=== PATIENT | male | born 1960 | race Caucasian/White ===

== ENCOUNTER 2017-06-02 07:33 | Observation (INO) | payer OTHER ==
[2017-06-02] VITALS (11 sets, daily range): BP systolic 125–171; BP diastolic 73–122; PULSE 64–82; TEMP 36.2–37; O2SAT 94–98; Ht 172.7 cm; Wt 70.9 kg
[~2017-06-02] VITALS: Ht 172.7 cm; Wt 70.9 kg
[~2017-06-02 07:33] MED LIST: HYDROCODONE
[2017-06-02] MEDS ORDERED: NITROGLYCERIN 0.4 MG SL PER TAB CHARGE ONE (07:51)
[2017-06-02] MEDS ORDERED: ASPIRIN 81 MG CHEW ONE (07:52)
[2017-06-02] MEDS ORDERED: SODIUM CHLORIDE 0.9% 1000ML 1,000 ML IV STA (07:56)
[2017-06-02] MEDS ORDERED: FENTANYL CITRATE INJ 50 MCG/1 ML 2 ML VIAL IV STA ×3 (08:06→09:53)
[2017-06-02 08:08] LABS: BASO % 0.4 %; BASO ABS # 0.03 K/uL (0-0.2); EOS % 2.4 %; HEMATOCRIT 42.3 % (42-52); HEMOGLOBIN 14.6 g/dL (14.0-18.0); IG# 0.01 K/uL (0.00-0.02); LYMPH % 46.1 %; LYMPH ABS # 3.91 K/uL (1.2-3.4); MEAN CELL VOLUME 89.2 fL (80-100); MEAN CORPUSCULAR HEMOGLOBIN 30.8 pg (25-34); MEAN CORPUSCULAR HGB CONC 34.5 g/dl (32-36); MEAN PLATELET VOLUME 9.4 fL (7.4-10.4); MONO ABS # 0.76 K/uL (0.11-0.59); NEUT ABS # 3.58 K/uL (1.4-6.5); PLATELET COUNT 291 K/uL (130-400); RED CELL DISTRIBUTION WIDTH CV 14.2 % (11.5-14.5); RED CELL DISTRIBUTION WIDTH SD 46.6 fL (36.4-46.3); WHITE BLOOD COUNT 8.49 K/uL (4.8-10.8)
[2017-06-02 08:17] LABS: ALBUMIN 4.4 gm/dl (3.4-5.0); ALT/SGPT 18 U/L (12-78); AST/SGOT 11 U/L (15-37); BLOOD UREA NITROGEN 15 mg/dl (7-18); CALCIUM 9.2 mg/dl (8.5-10.1); CARBON DIOXIDE 28 mmol/L (21-32); CREATININE 0.97 mg/dl (0.60-1.40); GLUCOSE 123 mg/dl (70-99); LIPASE 188 U/L (73-393); SODIUM 139 mmol/L (136-145)
[2017-06-02] MEDS ORDERED: ONDANSETRON INJ 2 MG/ML 2 ML VIAL ONE (08:19)
[2017-06-02] MEDS ORDERED: ONDANSETRON INJ 2 MG/ML 2 ML VIAL IV STA (08:19)
--- NOTE | 2017-06-02 08:19 | EMERGENCY ROOM VISIT NOTE ---
History First contact with patient: 07:41 Chief Complaint: CHEST PAIN Stated Complaint: CHEST PAIN Nursing Triage Summary: patient c/o midsternal chest pain that radiates into back since 629. denies SOB. patient states he took 1 naproxsyn this AM for pain. History of Present Illness The patient is a 56 year old male who presents to the Emergency Room with complaints of pain which began one hour ago. The patient states he was walking downstairs to his , and after walking back upstairs, he began experiencing the chest pain. He states he initially thought the pain was related to indigestion , as it was radiating into his back. He states it was very sharp, then went away. He got in his car to go to work, as he was driving, he noticed his pain is worsening. He decided to come here instead of work. The patient states he is currently having active chest pain. The patient describes the pain as sharp , it radiates across his chest, "like a pulled muscle". Patient states there has been no difficulty breathing. There is no diaphoresis. There has been no edema or leg swelling. The patient states the pain is intermittent, and seems to occur spontaneously. He did have some nausea while here, but denies any GI symptoms today. He states approximately 4 days ago, he was experiencing some diarrhea with abdominal cramping. He denies recent fever, chills, URI symptoms, cough, or congestion. He has a history of HTN and hyperlipidemia. [facility] His BP medications were discontinued approximately 10 years because he was not having HTN then. He states he does not take medication for hyperlipidemia, however he was advised he should be taking medication. He does smoke 1.5 packs cigarettes per day. Review of Systems A complete 10 point review of systems was reviewed with the patient with pertinent positives and negatives as per history of present illness. All else were negative. Past Medical/Surgical History Medical Problems: (1) Chronic lower back pain (2) HLD (hyperlipidemia) (3) HTN (hypertension) (4) Tobacco use disorder Hyperlipidemia, hypertension, chronic back pain Social History Smoking Status: Current Every Day Smoker Smokeless Tobacco Use: No Alcohol Use: none Drug Use: none Marital Status: single Occupation Status: employed Current/Historical Medications Scheduled Oxycodone HCl (Oxycodone HCl), 5 MG PO BID Allergies Morphine Physical Exam Vital Signs Date Time Temp Pulse Resp B/P (MAP) Pulse Ox O2 Delivery O2 Flow Rate FiO2 06/02/17 12:29 36.9 82 18 171/122 Room Air 165/103 06/02/17 11:43 66 18 137/86 98 Room Air 06/02/17 11:24 78 06/02/17 11:08 62 18 154/94 97 Room Air 06/02/17 10:35 62 17 96 06/02/17 10:30 61 14 148/91 96 06/02/17 10:25 61 20 96 06/02/17 10:20 62 18 96 06/02/17 10:15 62 18 94 06/02/17 10:10 63 23 94 06/02/17 10:05 61 17 93 06/02/17 10:00 62 16 148/92 96 06/02/17 09:55 60 16 98 06/02/17 09:50 59 15 96 06/02/17 09:49 152/90 06/02/17 09:45 58 18 99 06/02/17 09:40 59 18 98 06/02/17 09:35 60 17 98 06/02/17 09:30 55 20 96 06/02/17 09:25 54 24 96 06/02/17 09:20 56 21 95 06/02/17 09:15 57 18 154/93 98 06/02/17 09:10 58 18 156/94 97 06/02/17 09:05 55 21 160/93 98 06/02/17 09:00 56 16 167/92 96 06/02/17 08:55 54 19 150/87 97 06/02/17 08:50 59 18 157/91 98 06/02/17 08:45 55 15 154/92 99 06/02/17 08:40 56 18 150/93 99 06/02/17 08:35 63 18 138/92 96 06/02/17 08:30 56 21 146/89 99 06/02/17 08:25 150/92 06/02/17 08:23 57 14 96 06/02/17 08:20 132/86 06/02/17 08:18 58 13 96 06/02/17 08:15 138/89 06/02/17 08:13 63 22 95 06/02/17 08:12 141/88 12/29/17 08:09 94 Room Air 06/02/17 08:08 61 17 96 06/02/17 08:03 64 25 96 06/02/17 08:00 133/91 06/02/17 07:58 72 15 96 06/02/17 07:57 151/96 06/02/17 07:53 75 26 100 06/02/17 07:48 70 06/02/17 07:48 65 18 98 06/02/17 07:46 172/105 06/02/17 07:36 36.2 75 18 153/96 99 Room Air Physical Exam VITALS: Vitals are noted on the nurse's note and reviewed by myself. Vital signs stable. GENERAL: This is a 56 year old male, in no acute distress, nondiaphoretic, well- developed well-nourished. SKIN: The skin was without rashes, erythema, edema, or bruising. There is no tenting of the skin. Capillary reflex less than 2 seconds. HEAD: Normocephalic atraumatic. EARS: External auditory canals clear, tympanic membranes pearly juárez without erythema or effusion bilaterally. EYES: Pupils equal round and reactive to light and accommodation. Conjunctivae without injection, sclerae without icterus. Extraocular movements intact. NOSE: Patent, turbinates without inflammation or discharge. No sinus tenderness. MOUTH: Mucous membranes moist. Tonsils are not enlarged. Pharynx without erythema or exudate. Uvula midline. Airway patent. Tongue does not deviate. NECK: Supple without nuchal rigidity. No lymphadenopathy. No thyromegaly. Cervical spine is nontender. No JVD. HEART: Regular rate and rhythm without murmurs gallops or rubs. LUNGS: Clear to auscultation bilaterally without wheezes, rales or rhonchi. No dullness to percussion. No retractions or accessory muscle use. ABDOMEN: Positive bowel sounds x 4. Normal tympanic percussion. Soft, nontender, without masses or organomegaly. Ricketts sign negative. No guarding or rebound tenderness. MUSCULOSKELETAL: No muscle atrophy, erythema, or edema noted. Full range of motion without joint tenderness in all extremities. No tenderness of the chest wall on palpation. The patient states his symptoms improve with palpation of the anterior chest wall. Normal gait. Strength 5/5 throughout. NEURO: Patient was alert and oriented to person place and time. Normal sensation to light and sharp touch. Deep tendon reflexes 2+ throughout. No focal neurological deficits. Medical Decision & Procedures ER Provider Diagnostic Interpretation: Repeat EKG (08:03): Sinus bradycardia, ST flattening of the inferior leads. Changes previously noted in posterior leads improved. Multiple repeat EKGs without significant changes in comparison. CBC is without leukocytosis, anemia, thrombocytopenia. CMP did not show any significant renal, hepatic, lactulose abnormalities. Initial point of care troponin 0.0. Repeat point of care troponin positive at 0.1. Lipase was normal. SINGLE VIEW CHEST CLINICAL HISTORY: Atypical chest pain. FINDINGS: 2 AP, portable, upright chest radiographs are compared to study dated 10/19/2010. The cardiomediastinal silhouette is unremarkable. There is atherosclerotic calcification of the thoracic aorta. The lungs and pleural spaces are clear. No pneumothorax is seen. The bony thorax is grossly intact. IMPRESSION: No acute cardiopulmonary abnormality. Electronically signed by: Coleman Lopez M.D. 06/02/2017 8:20 AM Dictated Date/Time: 06/02/2017 8:19 AM Laboratory Results 06/02/17 07:35 Red Blood Count 4.74, Mean Corpuscular Volume 89.2, Mean Corpuscular Hemoglobin 30.8, Mean Corpuscular Hemoglobin Concent 34.5, Mean Platelet Volume 9.4, Neutrophils (%) (Auto) 42.0, Lymphocytes (%) (Auto) 46.1, Monocytes (%) (Auto) 9.0, Eosinophils (%) (Auto) 2.4, Basophils (%) (Auto) 0.4, Neutrophils # (Auto) 3.58, Lymphocytes # (Auto) 3.91, Monocytes # (Auto) 0.76, Eosinophils # (Auto) 0.20, Basophils # (Auto) 0.03 06/02/17 07:35 Test 06/02/17 07:35 06/02/17 08:10 White Blood Count 8.49 K/uL (4.8-10.8) Red Blood Count 4.74 M/uL (4.7-6.1) Hemoglobin 14.6 g/dL (14.0-18.0) Hematocrit 42.3 % (42-52) Mean Corpuscular Volume 89.2 fL (80-100) Mean Corpuscular Hemoglobin 30.8 pg (25-34) Mean Corpuscular Hemoglobin Concent 34.5 g/dl (32-36) Platelet Count 291 K/uL (130-400) Mean Platelet Volume 9.4 fL (7.4-10.4) Neutrophils (%) (Auto) 42.0 % Lymphocytes (%) (Auto) 46.1 % Monocytes (%) (Auto) 9.0 % Eosinophils (%) (Auto) 2.4 % Basophils (%) (Auto) 0.4 % Neutrophils # (Auto) 3.58 K/uL (1.4-6.5) Lymphocytes # (Auto) 3.91 K/uL (1.2-3.4) Monocytes # (Auto) 0.76 K/uL (0.11-0.59) Eosinophils # (Auto) 0.20 K/uL (0-0.5) Basophils # (Auto) 0.03 K/uL (0-0.2) RDW Standard Deviation 46.6 fL (36.4-46.3) RDW Coefficient of Variation 14.2 % (11.5-14.5) Immature Granulocyte % (Auto) 0.1 % Immature Granulocyte # (Auto) 0.01 K/uL (0.00-0.02) Anion Gap 7.0 mmol/L (3-11) Est Creatinine Clear Calc Drug Dose 82.2 ml/min Estimated GFR () 100.7 Estimated GFR (Non- 86.9 BUN/Creatinine Ratio 15.9 (10-20) Calcium Level 9.2 mg/dl (8.5-10.1) Total Bilirubin 0.5 mg/dl (0.2-1) Aspartate Amino Transf (AST/SGOT) 11 U/L (15-37) Alanine Aminotransferase (ALT/SGPT) 18 U/L (12-78) Alkaline Phosphatase 53 U/L (45-117) Total Protein 7.0 gm/dl (6.4-8.2) Albumin 4.4 gm/dl (3.4-5.0) Globulin 2.6 gm/dl (2.5-4.0) Albumin/Globulin Ratio 1.7 (0.9-2) Lipase 188 U/L (73-393) Bedside Troponin I < 0.030 ng/ml (0-0.045) Medications Administered Medications (Trade) Dose Ordered Sig/Tramaine Route Start Time Stop Time Status Last Admin Dose Admin Nitroglycerin (Nitrostat Tab) 0.4 mg STK-MED ONCE .ROUTE 06/02/17 07:51 06/02/17 07:52 DC 06/02/17 07:56 0.4 MG Aspirin (Aspirin Chew) 324 mg STK-MED ONCE .ROUTE 06/02/17 07:52 06/02/17 07:53 DC 06/02/17 07:56 324 MG Sodium Chloride 1,000 ml @ 999 mls/hr Q1H1M STAT IV 06/02/17 07:56 06/02/17 08:56 DC 06/02/17 07:56 999 MLS/HR Fentanyl Citrate (Fentanyl Inj) 50 mcg NOW STAT IV 06/02/17 08:06 06/02/17 08:08 DC 06/02/17 08:12 50 MCG Ondansetron HCl (Zofran Inj) 4 mg STK-MED ONCE .ROUTE 06/02/17 08:19 06/02/17 08:20 DC 06/02/17 08:23 4 MG Fentanyl Citrate (Fentanyl Inj) 50 mcg NOW STAT IV 06/02/17 08:49 06/02/17 08:50 DC 06/02/17 09:51 50 MCG Fentanyl Citrate (Fentanyl Inj) 50 mcg NOW STAT IV 06/02/17 09:53 06/02/17 09:54 DC 06/02/17 10:16 50 MCG Nitroglycerin (Nitroglycerin 2% Oint) 1 inch STK-MED ONCE .ROUTE 06/02/17 11:40 06/02/17 11:41 DC 06/02/17 11:43 1 INCH ECG Indication: chest pain Rate (beats per minute): 68 Rhythm: normal sinus Findings: nonspecific-ST abn (Inferior), ST depression (Posterior) ED Course The patient was seen and evaluated as above. IV access obtained, labs drawn. EKG obtained. The patient was given 4 mg nitroglycerin, 324 mg aspirin chew. This did not significantly affect his pain. He was given 50 g of fentanyl. I spoke with Dr. Davis regarding the patient. He recommended cardiology consult based on very subtle EKG changes and history. The patient continues to have significant chest pain. He was given another dose of 50 g of fentanyl. I spoke with Dr. Amaral regarding the initial negative troponin, but settled changes on the EKG and patient history. He recommended repeat troponin at 90 minutes. He states contact him back when this occurs. The patient continues to complain of chest pain. He was given a third dose of fentanyl 50 g. Repeat troponin was positive, and I did consult Dr. Amaral. I did also contact the [facility] hospitalist service for admission. Dr. Amaral's recommendation was for admission by the hospitalist group for workup for possible NSTEMI. I did ask if he would like heparin started, and he states no. The patient was seen by the hospitalist service. Please see their dictation for further management and care. Medical Decision This is a 56-year-old white male with significant past medical history for hypertension and hyperlipidemia. He is to be taking atorvastatin, however does not take this medication. The patient does have a family history of heart disease and possible stroke in his mother, but no paternal or personal history of cardiac events. He experienced substernal chest discomfort which he describes as sharp, but worse with exertion. While here in the ED, his pain was uncontrolled despite multiple rounds of pain medication. Due to the strong suspicion for cardiac event, troponins were trended and the second was positive. The hospitalist and cardiologists were consulted and the patient was admitted for possible NSTEMI. Etiologies such as cardiac ischemia, aortic dissection, pulmonary embolism, pneumonia, pneumothorax, musculoskeletal, infections, gastrointestinal, as well as others were entertained. Medication Reconcilliation Current Medication List: was personally reviewed by me Blood Pressure Screening Patient's blood pressure: Elevated blood pressure Blood pressure disposition: Elevated BP felt to be situational Impression Primary Impression: Chest pain Departure Information Dispostion Being Evaluated By Hospitalist Condition FAIR Referrals No Doctor, Assigned (PCP) Patient Instructions My [facility] Problem Qualifiers Primary Impression: Chest pain Chest pain type: chest pain due to myocardial ischemia Ischemic chest pain type: unstable angina pectoris Qualified Codes: I20.0 - Unstable angina
[2017-06-02 08:22] LABS: ALKALINE PHOSPHATASE 53 U/L (45-117); CKMB 0.9 ng/ml (0.5-3.6)
[2017-06-02] MEDS ORDERED: OXYC-609 PO (08:32)
[2017-06-02] MEDS ORDERED: ONDANSETRON INJ 2 MG/ML 2 ML VIAL IV PRN ×2 (09:00→11:15)
[2017-06-02] MEDS ORDERED: NITROGLYCERIN OINT 2% 1GM PACKET ONE (11:40)
--- NOTE | 2017-06-02 11:50 | History and Physical ---
History & Physical Date & Time of Service: Jun 02, 2017 at 11:38 Chief Complaint: Chest Pain Primary Care Physician: [facility] History of Present Illness Source: patient, spouse (at bedside) This is a 56yo M with a PMH of HTN, HLD, tobacco use disorder and chronic lower back pain who presents with worsening chest pain that started this morning. Patient was going up and down his stairs at home when he started to experience sudden onset chest pain. Describes as sharp, 6/10 pain across precordium radiated to his back and lasted for 5 minutes before subsiding. Patient was driving to work when he experienced another, more severe episode of 9/10 chest pain with associated radiation to back and tingling in his arms. Denies diaphoresis, nausea, vomiting or SOB. Drove himself to ED for further evaluation. States that he was told 10 years ago from his [place] doctor that he no longer needed BP meds, so he stopped taking them. Has been diagnosed with HLD and prescribed atorvastatin but does not take. Smokes 1.5 ppd. Denies any personal or family history of CAD or h/o MIs. Family history of CVA. Denies fever, chills, lightheadedness, headache, diaphoresis, palpitations, SOB, abd pain, nausea, vomiting or LE swelling. ED course included a full dose aspirin, sublingual nitro and 150mg of fentanyl total with some pain relief (went from 9/10 to 4/10). Initial EKG was read with possible ischemia in inferior leads and ST depression in posterior leads but findings improved in repeat EKGs. Initial troponin was negative but repeat POC troponin was elevated to 0.1. Past Medical/Surgical History Medical Problems: (1) Chronic lower back pain Status: Chronic (2) HLD (hyperlipidemia) Status: Chronic (3) HTN (hypertension) Status: Chronic (4) Tobacco use disorder Status: Chronic Family History Stroke MOTHER Social History Smoking Status: Current Every Day Smoker Smokeless Tobacco Use: No Drug Use: none Marital Status: Housing status: lives with family Occupational Status: employed Immunizations History of Tetanus Vaccine?: 1997 History of Pneumococcal: No History of Hepatitis B Vaccine: No Multi-Drug Resistant Organisms History of MDRO: No Allergies Coded Allergies: Morphine (Unverified Allergy, Unknown, NAUSEA, 06/02/17) Home Medications Scheduled Oxycodone HCl (Oxycodone HCl), 5 MG PO BID Review of Systems Ten systems reviewed and negative except as noted in the HPI. Physical Exam Vital Signs Date Time Temp Pulse Resp B/P (MAP) Pulse Ox O2 Delivery O2 Flow Rate FiO2 06/02/17 11:24 78 06/02/17 11:08 62 18 154/94 97 Room Air 06/02/17 10:35 62 17 96 06/02/17 10:30 61 14 148/91 96 06/02/17 10:25 61 20 96 06/02/17 10:20 62 18 96 06/02/17 10:15 62 18 94 06/02/17 10:10 63 23 94 06/02/17 10:05 61 17 93 06/02/17 10:00 62 16 148/92 96 06/02/17 09:55 60 16 98 06/02/17 09:50 59 15 96 06/02/17 09:49 152/90 06/02/17 09:45 58 18 99 06/02/17 09:40 59 18 98 06/02/17 09:35 60 17 98 06/02/17 09:30 55 20 96 06/02/17 09:25 54 24 96 06/02/17 09:20 56 21 95 06/02/17 09:15 57 18 154/93 98 06/02/17 09:10 58 18 156/94 97 06/02/17 09:05 55 21 160/93 98 06/02/17 09:00 56 16 167/92 96 06/02/17 08:55 54 19 150/87 97 06/02/17 08:50 59 18 157/91 98 06/02/17 08:45 55 15 154/92 99 06/02/17 08:40 56 18 150/93 99 06/02/17 08:35 63 18 138/92 96 06/02/17 08:30 56 21 146/89 99 06/02/17 08:25 150/92 06/02/17 08:23 57 14 96 06/02/17 08:20 132/86 06/02/17 08:18 58 13 96 06/02/17 08:15 138/89 06/02/17 08:13 63 22 95 06/02/17 08:12 141/88 06/02/17 08:09 94 Room Air 06/02/17 08:08 61 17 96 06/02/17 08:03 64 25 96 06/02/17 08:00 133/91 06/02/17 07:58 72 15 96 06/02/17 07:57 151/96 06/02/17 07:53 75 26 100 06/02/17 07:48 70 06/02/17 07:48 65 18 98 06/02/17 07:46 172/105 06/02/17 07:36 36.2 75 18 153/96 99 Room Air General Appearance: + mild distress, + pertinent finding (Pale appearing ) Head: normocephalic, atraumatic Eyes: normal inspection, PERRL, sclerae normal ENT: normal ENT inspection, hearing grossly normal, pharynx normal (moist mucous membranes ) Neck: supple, thyroid normal, trachea midline Respiratory/Chest: chest non-tender, lungs clear, normal breath sounds, no respiratory distress, no accessory muscle use Cardiovascular: regular rate, rhythm, no murmur, normal peripheral pulses Abdomen/GI: non tender, soft, no organomegaly Back: normal inspection Extremities/Musculoskelatal: normal inspection, no calf tenderness, no pedal edema Neurologic/Psych: no motor/sensory deficits, alert, normal mood/affect, oriented x 3 Skin: normal color, warm/dry Diagnostics Laboratory Results Results Past 24 Hours Test 06/02/17 07:35 06/02/17 08:10 06/02/17 11:28 Range/Units White Blood Count 8.49 4.8-10.8 K/uL Red Blood Count 4.74 4.7-6.1 M/uL Hemoglobin 14.6 14.0-18.0 g/dL Hematocrit 42.3 42-52 % Mean Corpuscular Volume 89.2 80-100 fL Mean Corpuscular Hemoglobin 30.8 25-34 pg Mean Corpuscular Hemoglobin Concent 34.5 32-36 g/dl Platelet Count 291 130-400 K/uL Mean Platelet Volume 9.4 7.4-10.4 fL Neutrophils (%) (Auto) 42.0 % Lymphocytes (%) (Auto) 46.1 % Monocytes (%) (Auto) 9.0 % Eosinophils (%) (Auto) 2.4 % Basophils (%) (Auto) 0.4 % Neutrophils # (Auto) 3.58 1.4-6.5 K/uL Lymphocytes # (Auto) 3.91 1.2-3.4 K/uL Monocytes # (Auto) 0.76 0.11-0.59 K/uL Eosinophils # (Auto) 0.20 0-0.5 K/uL Basophils # (Auto) 0.03 0-0.2 K/uL RDW Standard Deviation 46.6 36.4-46.3 fL RDW Coefficient of Variation 14.2 11.5-14.5 % Immature Granulocyte % (Auto) 0.1 % Immature Granulocyte # (Auto) 0.01 0.00-0.02 K/uL Sodium Level 139 136-145 mmol/L Potassium Level 4.0 3.5-5.1 mmol/L Chloride Level 104 98-107 mmol/L Carbon Dioxide Level 28 21-32 mmol/L Anion Gap 7.0 3-11 mmol/L Blood Urea Nitrogen 15 7-18 mg/dl Creatinine 0.97 0.60-1.40 mg/dl Est Creatinine Clear Calc Drug Dose 82.2 ml/min Estimated GFR () 100.7 Estimated GFR (Non- 86.9 BUN/Creatinine Ratio 15.9 10-20 Random Glucose 123 70-99 mg/dl Calcium Level 9.2 8.5-10.1 mg/dl Total Bilirubin 0.5 0.2-1 mg/dl Aspartate Amino Transf (AST/SGOT) 11 15-37 U/L Alanine Aminotransferase (ALT/SGPT) 18 12-78 U/L Alkaline Phosphatase 53 45-117 U/L Total Creatine Kinase 61 39-308 U/L Creatine Kinase MB 0.9 0.5-3.6 ng/ml Creatine Kinase MB Ratio 1.5 0-3.0 Troponin I < 0.015 0-0.045 ng/ml Total Protein 7.0 6.4-8.2 gm/dl Albumin 4.4 3.4-5.0 gm/dl Globulin 2.6 2.5-4.0 gm/dl Albumin/Globulin Ratio 1.7 0.9-2 Lipase 188 73-393 U/L Bedside Troponin I < 0.030 0-0.045 ng/ml Diagnostic Radiology CXR: IMPRESSION: No acute cardiopulmonary abnormality. Chest/thorax CTA: IMPRESSION: 1. No pulmonary emboli identified. 2. Moderate emphysema. 3. 1 cm subpleural groundglass opacity within the right lower lobe. This likely reflects minimal airspace disease or atelectasis. A pleural lesion is considered less likely however a follow-up chest CT in 3 months to ensure resolution is recommended. 4. Small hiatal hernia. 5. Mild esophageal wall thickening which may be due to underdistention or reflect esophagitis. CXR normal EKG Reviewed all EKGs obtained in ER. NSR with possible ST elevation in aVR (<1mm) but not in any other leads. Possible ischemic changes in III. Most recent EKG read as NSR. Impression Assessment and Plan This is a 56yo M with a PMH of HTN, HLD, tobacco use disorder and chronic lower back pain who presents with worsening chest pain that started this morning. NSTEMI: -R/o ACS; risk factors include HTN, HLD, tobacco use -Initial troponin negative. Repeat serum troponin elevated to 1.04 -EKG- Subtle ischemic change in inferior leads (III) Possible ST elevation in aVL (<1mm) but no other leads Most recent EKG was NSR -CXR- wnl -Full dose aspirin given -Statin given -Cardiology consulted -Check echo -Trend serial cardiac enzymes -IV heparin initiated -IV Lopressor initiated for BP control HTN: -Reports h/o HTN but has not taken medication in 10 years -Follows with [facility] for management -BP currently elevated; IV lopressor initiated HLD: -Has not been taking statin -Follows with [facility] -Statin given today Chronic back pain: -H/o bilateral sciatica -Home dose percocet held currently DVT Ppx: IV heparin Code status: FULL PCP: Dr. Shin ([facility]) Dispo: Telemetry observation. Plan to return home once medically stable. Patient seen in collaboration with Dr. Garcia. Please see addendum. The patient was seen and examined Exertional Upper Chest pain for more than 5 minutes suggestive of Cardiac origin Significant risk factors including Smoking ,Hyperlipidemia,HTN,Male sex and strong family history Questionable EKG changes but Elevated Troponin Likely has NSTEMI O/E Stable during my exam Chest-minimally decreased breath sound Heart-regular Abdomen-benign Extremities-negative Labs and imaging studies were reviewed Agree with the assessment and Plan. Dr Tunde Garcia Level of Care Telemetry Resuscitation Status FULL RESUSCITATION VTE Prophylaxis VTE Risk Assessment Done? Y/N: Yes Risk Level: Moderate Given or contraindicated: Unfractionated heparin SQ
[2017-06-02] MEDS ORDERED: IV FLUIDS COMPLETED PRN (12:00)
[2017-06-02] MEDS ORDERED: OPTIRAY 320 IV PRN (12:15)
--- NOTE | 2017-06-02 12:15 | NUR ---
pt arrived to room 240-1 via stretcher from ed. ambulated to bed with steady gait. admission nurse @ bedside. currently rating chest pain 09/12. bp also elevated. 171/122 on left, 165/[address] santo is aware. code word, fall risk established. at bedside. heart monitor applied. oriented to room call rand plan of care. denies needs at this time. call arnd in reach will cont to monitor.
[2017-06-02 12:25] LABS: CKMB 14.1 ng/ml (0.5-3.6)
--- NOTE | 2017-06-02 12:46 | DIAGNOSTIC IMAGING REPORT ---
CT ANGIOGRAPHY OF THE CHEST, PULMONARY EMBOLUS PROTOCOL CLINICAL HISTORY: Chest pain. Evaluate for pulmonary embolus or dissection. COMPARISON STUDY: Chest radiograph October 19, 2010 and June 02, 2017. TECHNIQUE: Following IV administration of 93 mL of Optiray-320, helical axial images of the chest were obtained utilizing the pulmonary embolus protocol. Maximal intensity projections and sagittal and coronal reformats were viewed on an independent 3D workstation. IV contrast was administered without complication. A dose lowering technique was utilized adhering to the principles of ALARA. CT DOSE: 226.70 mGy.cm FINDINGS: No pulmonary emboli are identified. There is no evidence of thoracic aortic dissection. The size of the heart is normal. There is no pericardial effusion. There is a small hiatal hernia. Note is made of mild circumflex wall thickening of the thoracic esophagus. No enlarged axillary, mediastinal or hilar lymph nodes are present. There is mild bronchial wall thickening. Moderate emphysema is noted. Note is made of a 1 cm groundglass subpleural right lower lobe opacity shown image 117 of 270. There is a subtle 4 mm groundglass density within left upper lobe shown on image 180. There is no pneumothorax or pleural effusion. No significant abnormality is within the bony thorax are noted. Upper abdomen is unremarkable. IMPRESSION: 1. No pulmonary emboli identified. 2. Moderate emphysema. 3. 1 cm subpleural groundglass opacity within the right lower lobe. This likely reflects minimal airspace disease or atelectasis. A pleural lesion is considered less likely however a follow-up chest CT in 3 months to ensure resolution is recommended. 4. Small hiatal hernia. 5. Mild esophageal wall thickening which may be due to underdistention or reflect esophagitis. Electronically signed by: Tj Thomas M.D. 06/02/2017 12:45 PM Dictated Date/Time: 06/02/2017 12:34 PM
[2017-06-02] MEDS ORDERED: INFLUENZA ADMINISTRATION CHARGE ONE (13:15)
[2017-06-02] MEDS ORDERED: INFLUENZA VIRUS QUAD VACCINE 0.5 ML SYR IM. ONE (13:15)
[2017-06-02] MEDS ORDERED: METOPROLOL TARTRATE 1 MG/ML VIAL IV. ONE (13:45)
[2017-06-02] MEDS ORDERED: HEPARIN 25,000 UNIT/500ML D5W 500 ML IV PRN (14:00)
[2017-06-02] MEDS ORDERED: HEPARIN IV BOLUS 6,000 UNIT in SYRINGE 0 ML IV ONE (14:00)
[2017-06-02] MEDS ORDERED: ATORVASTATIN 40 MG TAB PO ONE (14:45)
[2017-06-02] MEDS ORDERED: FENTANYL CITRATE INJ 50 MCG/1 ML 2 ML VIAL ONE (14:56)
[2017-06-02] MEDS ORDERED: HEPARIN SOD (PORCINE) 1000 UNIT/ML 10 ML VIAL ONE (14:56)
[2017-06-02] MEDS ORDERED: MIDAZOLAM HCL 1 MG/ML 2ML VIAL ONE (14:56)
[2017-06-02] MEDS ORDERED: NiCARDipine HCL INJ 2.5 MG/ML 10 ML AMP ONE (14:57)
[2017-06-02] MEDS ORDERED: NITROGLYCERIN/D5W 100MCG/ML 20ML SYR ONE (14:58)
[2017-06-02] MEDS ORDERED: DC ALL ANTICOAGULANTS ONE (15:00)
--- NOTE | 2017-06-02 15:04 | NUR ---
PT TO [employer].
--- NOTE | 2017-06-02 15:36 | PROGRESS NOTE ---
DATE: 06/02/2017 I reviewed the patient's echocardiogram. He has definite wall motion abnormalities and with his story and increased cardiac markers, I think it is best that we proceed with an invasive strategy. I have recommended to the patient that we perform a cardiac catheterization. I have explained the risks, benefits and intent of the procedure to the patient including the potential for catheter-based intervention such as balloon angioplasty or intercoronary stenting. He is willing to proceed. We will have him sign a consent and it will be done this afternoon.
--- NOTE | 2017-06-02 15:50 | CARDIOLOGY CONSULTATION ---
DATE OF CONSULTATION: 06/02/2017 CONSULTATION FOR: Felicita pardo. REASON FOR CONSULTATION: Chest pain. HISTORY OF PRESENT ILLNESS: This is a 56-year-old male patient who receives most of his medical care through the [facility]. He lists his only home medication as oxycodone. He does have a history of hypertension, for which he does not take medications. He also has a history of hyperlipidemia and chronic low back pain. He is a current smoker. He was in his usual state of health and today experienced chest pain while climbing stairs in his home. It lasted for approximately 5 minutes and then subsided. He decided to drive to work and on the way to work, he had additional chest discomfort and drove himself to the Emergency Department. After arrival to the Emergency Department and admission, he has had a total of 6 EKGs. Five of those EKG show a sinus rhythm and are essentially within normal limits. There is one EKG that does not have a proper time stamp on it, so I am unsure as to whether this is a valid EKG, but is still markedly different from the other EKGs that I cannot say that it was done properly. He currently has no chest pain. He has been started on heparin, nitro paste and metoprolol. His first set of point of care cardiac markers were negative. His laboratory drawn troponin I is elevated at 1.04. ALLERGIES: MORPHINE, ALTHOUGH THE PATIENT LIST ONE OF HIS MEDICATIONS OXYCODONE. PAST MEDICAL HISTORY: As outlined above, the patient has a history of hypertension and dyslipidemia, but has not been on any medications. He does have chronic low back pain. He denies diabetes, strokes or kidney disease. SOCIAL HISTORY: He is a current smoker. He is and lives with his . FAMILY MEDICAL HISTORY: Noncontributory. REVIEW OF SYSTEMS: The 10-point review of systems is negative except for the history of chief complaint. PHYSICAL EXAMINATION: GENERAL: He is alert and oriented, in no acute distress. VITAL SIGNS: Blood pressure is 140/80 and pulse is regular at 60 beats per minute. He is afebrile. HEENT: He is normocephalic. Pupils are equal and reactive to light. Extraocular muscles are intact bilaterally. NECK: The neck veins are flat. Carotids have good upstrokes bilaterally without bruits. Thyroid is nonpalpable. RESPIRATORY: Breath sounds equal bilaterally and clear to auscultation. CARDIOVASCULAR: Heart has a regular rhythm. Normal S1 and S2. No S3 or S4. No cardiac rubs or murmurs. GASTROINTESTINAL: Abdomen is soft and nontender without organomegaly. EXTREMITIES: Free of edema, digit clubbing, or cyanosis. NEUROLOGIC: Grossly intact. SKIN: Warm to touch. LYMPH NODES: Negative to palpation. LABORATORY DATA: As per the history of chief complaint. In addition, the patient's creatinine is 0.97. Potassium is 4.0. Hemoglobin is 14.6. IMPRESSION: 1. Non-ST elevation myocardial infarction. 2. Cigarette smoker. 3. Hypertension. 4. Dyslipidemia. RECOMMENDATIONS: As outlined above, the patient's EKGs are essentially within normal limits; however, one EKG is markedly different and I wonder if it is due to lead placement or some other reason. I do not believe that the EKG will change this drastically if this were true cardiac event. His cardiac markers are at present borderline elevated. He does have risk factors and a good story and so I think we should continue to draw additional cardiac markers and at this point, call this as a non-STEMI. He should be started on heparin, which we have already done. He should receive aspirin and a beta maciel as well as nitrates, which have already been started. We will wait for the second markers and make decisions whether this will be an invasive route or conservative with a stress test.
--- NOTE | 2017-06-02 16:18 | Cardiac Catheterization ---
Procedure Note Procedure Date Jun 02, 2017. Pre-Procedure Diagnosis Non STEMI AUC Score 9 Post-Procedure Diagnosis Severe CAD Procedure(s) Performed Coronary Angiography, Left Heart Cath, LV Angiography Ruling Machine Set Up Operator Dr. Amaral Tool Design Engineer(s) None Estimated Blood Loss None Medication(s) Versed, Lidocaine 1% Summary of Findings See dictated report Hemodynamics Rest Ao: 150/80 Final Ao: 148/79 LV: 153/19 Recommendations PCI without planned CABG Specimens None Radiation Exposure (mGy) 740 Contrast (mls) 112 Procedural Complication(s) None Disposition PCU ACC Data Cardiac Status Clinical evaluation leading to the procedure CAD Presntation: Non STEMI Anginal Classification: CCS III Heart Failure: No Cardiogenic Shock w/in 24Hrs: No Cardiac Arrest w/in 24Hrs: No Imaging studies past 6 months: Yes Stress studies past 6 months: No Coronary Anatomy Dominant: Right Left Main (% Stenosis): Ostial (30), Distal (30) LAD (% Stenosis): Normal Circumflex (% Stenosis): Mid (100) RCA (% Stenosis): Normal Left Ventricular Angiography EF (%): 60 Wall Motion: Inferior (Hypokinetic) Mitral Regurgitation: None Diagnostic Status: Urgent Closure Device Percutaneous Entry Location: Femoral
--- NOTE | 2017-06-02 16:30 | CARDIAC CATH REPORT ---
CARDIAC CATHETERIZATION PROCEDURE: 1. Left heart catheterization. 2. Coronary angiography. 3. Left ventriculography. HISTORY: This is a 56-year-old male who presented with chest pain. After admission, he had an elevation in his cardiac markers and an echocardiogram that showed wall motion abnormalities. PROCEDURE SUMMARY: The patient was brought to the cardiac catheterization lab. After informed consent was obtained, the patient was prepped and draped in the usual manner for a right transfemoral approach. Preformed 5-Macanese diagnostic catheters were utilized for the coronary angiograms. A 5-Macanese pigtail catheter was utilized for the left ventriculogram. Following the procedure, the patient underwent coronary intervention. CORONARY ANGIOGRAPHY: Selective injections of the left coronary artery reveal tapering at the ostium of the left main trunk. The LAD trifurcates. The LAD is widely patent. The left circumflex artery in its mid segment is occluded. It does give off a small AV groove branch but is 100% occluded in its mid segment. The right coronary artery is dominant. The right coronary artery is widely patent. LEFT VENTRICULOGRAM: The left ventricle is of normal size. There is hypokinesis of the lateral myocardium. The mitral valve is competent. The aortic root and ascending aorta have normal morphology and diameter. The LVEDP is 19. SUMMARY: The patient has an occlusion of the circumflex in its mid segment. The other two remaining coronary arteries, left anterior descending and right coronary artery, are widely patent. RECOMMENDATIONS: For coronary intervention on the left circumflex artery.
--- NOTE | 2017-06-02 16:32 | ECHOCARDIOGRAM REPORT ---
*NOTICE TO RECEIVING LIBERTARIAN AGENCY This information is strictly Confidential and protected under [place] law. [place] law prohibits you from making any further disclosure of this information unless further disclosure is expressly permitted by the written consent of the person to whom it pertains or is authorized by law. A general authorization for the release of medical or other information is not sufficient for this purpose. Hospital accepts no responsibility if the information is made available to any other person, INCLUDING THE PATIENT. Interpretation Summary * Name: DONNY NEVES Study Date: 06/02/2017 01:24 PM BP: 165/103 mmHg * Patient Location: C.2T\S\S240\S\1 HR: 71 * : 1960 (M/d/yyyy) Gender: Male Height: 68 in * Age: 56 yrs Ethnicity: CA Weight: 157 lb * Ordering Physician: Francesca Kaufman * Referring Physician: Self, Referred * Performed By: Claritza Carr RCS * * Reason For Study: CHEST PAIN / ELEVATED TROPONIN * BSA: 1.8 m2 * -- Conclusions -- * There is a large sized apical, anterior, and lateral wall motion abnormality with hypokinesis of the segments. * Left ventricular systolic function is mildly reduced. * The qualitative left ventricular ejection fraction =45% * There is no significant valvular heart disease. Procedure Details * A complete two-dimensional transthoracic echocardiogram was performed (2D, M-mode, Doppler and color flow Doppler). Left Ventricle * The left ventricle is normal in size. * There is normal left ventricular wall thickness. * Left ventricular systolic function is mildly reduced. * The qualitative left ventricular ejection fraction =45% * There is a large sized apical, anterior, and lateral wall motion abnormality with hypokinesis of the segments. Right Ventricle * The right ventricle is normal in size and function. * The right ventricular systolic function is normal as assessed by tricuspid annular plane systolic excursion (TAPSE) (normal >1.5 cm). Atria * The left atrial size is normal. * Right atrial size is normal. * There is no evidence of atrial septal defect, but resolution does not allow assessment for a patent foramen ovale. Mitral Valve * The mitral valve is normal. * There is no mitral valve stenosis. * Significant mitral regurgitation is absent. Tricuspid Valve * The tricuspid valve is normal. * There is no tricuspid stenosis. * Significant tricuspid regurgitation is absent. Aortic Valve * The aortic valve is trileaflet. * Aortic stenosis is absent. * There is no significant aortic regurgitation. Pulmonic Valve * The pulmonary valve is not well seen, but the Doppler examination is normal without significant regurgitation or stenosis. Great Vessels * The aortic root and proximal ascending aorta are normal sized. Pericardium/Pleural * There is no pericardial effusion. Great Vessels * Normal inferior vena cava diameter and respiratory variation suggests normal central venous pressure. Left Ventricular Diastolic Function * The LV diastolic function is normal. MMode 2D Measurements and Calculations IVSd 1.4 cm IVSs 1.5 cm LVIDd 4.4 cm LVIDs 3.1 cm LVPWd 1.3 cm LVPWs 1.1 cm IVS/LVPW 1.1 FS 29.4 % EDV(Teich) 87.5 ml ESV(Teich) 38.1 ml EF(Teich) 56.5 % EDV(cubed) 85.0 ml ESV(cubed) 30.0 ml EF(cubed) 64.7 % % IVS thick 5.5 % % LVPW thick -10.49 % LV mass(C)d 224.2 grams LV mass(C)dI 121.6 grams/m\S\2 LV mass(C)s 131.9 grams LV mass(C)sI 71.5 grams/m\S\2 SV(Teich) 49.4 ml SI(Teich) 26.8 ml/m\S\2 SV(cubed) 55.0 ml SI(cubed) 29.8 ml/m\S\2 Ao root diam 2.5 cm Ao root area 5.0 cm\S\2 LVAd ap4 34.1 cm\S\2 LVLd ap4 8.2 cm EDV(MOD-sp4) 114.7 ml EDV(sp4-el) 119.9 ml LVAs ap4 21.4 cm\S\2 LVLs ap4 6.6 cm ESV(MOD-sp4) 56.3 ml ESV(sp4-el) 58.5 ml EF(MOD-sp4) 50.9 % EF(sp4-el) 51.2 % LVAd ap2 34.4 cm\S\2 LVLd ap2 8.6 cm EDV(MOD-sp2) 115.0 ml EDV(sp2-el) 117.1 ml LVAs ap2 20.0 cm\S\2 LVLs ap2 6.5 cm ESV(MOD-sp2) 52.1 ml ESV(sp2-el) 52.2 ml EF(MOD-sp2) 54.7 % EF(sp2-el) 55.4 % LVLd %diff 4.3 % EDV(MOD-bp) 117.2 ml LVLs %diff -1.34 % ESV(MOD-bp) 54.0 ml EF(MOD-bp) 53.9 % SV(MOD-sp4) 58.4 ml SI(MOD-sp4) 31.7 ml/m\S\2 SV(MOD-sp2) 62.9 ml SI(MOD-sp2) 34.1 ml/m\S\2 SV(MOD-bp) 63.2 ml SI(MOD-bp) 34.2 ml/m\S\2 SV(sp4-el) 61.4 ml SI(sp4-el) 33.3 ml/m\S\2 SV(sp2-el) 64.9 ml SI(sp2-el) 35.2 ml/m\S\2 Doppler Measurements and Calculations MV E max rhea 87.9 cm/sec MV A max rhea 66.9 cm/sec MV E/A 1.3 MV P1/2t max rhea 93.0 cm/sec MV P1/2t 93.2 msec MVA(P1/2t) 2.4 cm\S\2 MV dec slope 292.2 cm/sec\S\2 MV dec time 0.21 sec Ao V2 max 94.9 cm/sec Ao max PG 3.6 mmHg Ao max PG (full) 0.95 mmHg LV V1 max PG 2.7 mmHg LV V1 max 81.4 cm/sec MR max rhea 359.1 cm/sec MR max PG 51.6 mmHg PA V2 max 48.0 cm/sec PA max PG 0.92 mmHg
--- NOTE | 2017-06-02 16:52 | Post Sedation Assessment ---
Post Sedation Assessment General Date of Sedation Jun 02, 2017. Vital Signs: Vital Signs Past 12 Hours Date Time Temp Pulse Resp B/P (MAP) Pulse Ox O2 Delivery O2 Flow Rate FiO2 06/02/17 16:45 Room Air 06/02/17 16:40 Room Air 06/02/17 16:34 68 16 144/93 (110) 96 Room Air 06/02/17 12:29 36.9 82 18 171/122 Room Air 165/103 06/02/17 11:43 66 18 137/86 98 Room Air 06/02/17 11:24 78 06/02/17 11:08 62 18 154/94 97 Room Air 06/02/17 10:35 62 17 96 06/02/17 10:30 61 14 148/91 96 06/02/17 10:25 61 20 96 06/02/17 10:20 62 18 96 06/02/17 10:15 62 18 94 06/02/17 10:10 63 23 94 06/02/17 10:05 61 17 93 06/02/17 10:00 62 16 148/92 96 06/02/17 09:55 60 16 98 06/02/17 09:50 59 15 96 06/02/17 09:49 152/90 06/02/17 09:45 58 18 99 06/02/17 09:40 59 18 98 06/02/17 09:35 60 17 98 06/02/17 09:30 55 20 96 06/02/17 09:25 54 24 96 06/02/17 09:20 56 21 95 06/02/17 09:15 57 18 154/93 98 06/02/17 09:10 58 18 156/94 97 06/02/17 09:05 55 21 160/93 98 06/02/17 09:00 56 16 167/92 96 06/02/17 08:55 54 19 150/87 97 06/02/17 08:50 59 18 157/91 98 06/02/17 08:45 55 15 154/92 99 06/02/17 08:40 56 18 150/93 99 06/02/17 08:35 63 18 138/92 96 06/02/17 08:30 56 21 146/89 99 06/02/17 08:25 150/92 06/02/17 08:23 57 14 96 12/29/17 08:20 132/86 06/02/17 08:18 58 13 96 06/02/17 08:15 138/89 06/02/17 08:13 63 22 95 06/02/17 08:12 141/88 06/02/17 08:09 94 Room Air 06/02/17 08:08 61 17 96 06/02/17 08:03 64 25 96 06/02/17 08:00 133/91 06/02/17 07:58 72 15 96 06/02/17 07:57 151/96 06/02/17 07:53 75 26 100 06/02/17 07:48 70 06/02/17 07:48 65 18 98 06/02/17 07:46 172/105 06/02/17 07:36 36.2 75 18 153/96 99 Room Air Post Procedure Recovery Score Activity: (2) Moves 4 extremities * Respiration: (2) Deep breath/cough Circulation: (2) +/-20% PreAnes Value Consciousness: (2) Fully Awake Oxygen Saturation: (2) > 92% On Room Air Post Anesthesia Score: 10 Discharge Sedation Level of Care: Fast Track Phase II Post Sedation Plan On clinical assessment, the patient appears to have tolerated the sedation without complications. Patient is recovering as anticipated. Patient will continue to be monitored by nursing and may be discharged when sedation discharge criteria are met per below protocol. Upon Completions of procedure and additional 15 minutes continue every 5 minute vital signs and the P.A.R. score; then discharge to a Phase I or Fast Track to Phase II per the following guidelines: * Discharge Patient to appropriate Phase II area if PAR is 8 or greater or return to pre- procedure baseline. The post - procedure orders will be as directed. * If PAR score is less than 8 or not return to pre-procedure baseline then patient will follow Phase I monitoring till PAR is reached for Phase II. The Phase I may be done in procedure room or may call to secure a Phase I area. * If naloxone or flumazenil are used for reversal, hold in Phase I for an additional 60 -120 minutes before discharge to Phase II. Please call the Sedation Physician to re-evaluate and complete post-note for discharge to Phase II area. Do NOT discharge from procedure sedation or Phase 1 until post- sedation evaluation note is complete by procedure /sedation MD Sedation Discharge Instructions to be given to the patient at discharge to home.
--- NOTE | 2017-06-02 16:52 | NUR ---
PT REMAINS IN PUBLICATION DESIGNER
--- NOTE | 2017-06-02 17:02 | Cardiac Catheterization ---
Procedure Note Procedure Date Jun 02, 2017. Pre-Procedure Diagnosis Non STEMI AUC Score 8 Post-Procedure Diagnosis Severe CAD, Successful PCI Procedure(s) Performed Drug Eluting Stent, Femoral Artery Angiography Rehabilitation Therapist Armando Loss Prevention Associate(s) Amelie Estimated Blood Loss 15 Medication(s) Fentanyl, Heparin, Nicardipine, Nitroglycerin, Versed, Lidocaine 1% Summary of Findings Indication: High-risk NSTEMI Access: 6Fr right VICE PRINCIPAL Catheters: EBU 3.5 guide Findings: For full details of patient's coronary angiography please see cath report dictated by Dr. Amaral. Briefly, patient found to have acutely occluded OM2 -- > decision to proceed with PCI. -- PCI -- Antithrombotic therapy: Heparin, Clopidogrel Procedure: LM cannulated with EBU3.5 guide BMW wire passed across lesion into distal vessel OM2 lesion predilated with 2.5 compliant balloon Dilated lesion stented with 2.5 x 26 Gil GEOVANI Stent post-dilated with 2.5 noncompliant balloon IC vasodilators administered for spasm Post procedure CHACHA 3 flow, stent well expanded with minimal residual stenosis and no apparent cardiac complications. Arterial Closure: Mynx -- small hematoma post deployment - manual pressure held Summary: 1. Successful PCI of proximal OM2 with one drug-eluting stent (2.5 x 26 Gil) Recommendations: To PCU for continued monitoring Loaded with Clopidogrel 600mg Continue dual-antiplatelet therapy with ASA/Clopidogrel for 1 year Continue statin, ASCVD risk factor modification per Dr. Amaral Smoking cessation Consult cardiac Rehab Hemodynamics Rest Ao: 150/80/111 Final Ao: 111/62/82 LV: 153/19 Recommendations PCI without planned CABG Specimens None Radiation Exposure (mGy) 1874 Contrast (mls) 217 (total) Fluids (cc crystalloids) 35 Drains none Anesthesia moderate Procedural Complication(s) None Disposition PCU ACC Data Cardiac Status Clinical evaluation leading to the procedure CAD Presntation: Non STEMI Anginal Classification: CCS IV Heart Failure: No, NYHA Class: CCS I Cardiogenic Shock w/in 24Hrs: No Cardiac Arrest w/in 24Hrs: No Imaging studies past 6 months: Yes Stress studies past 6 months: No Diagnostic Physician's Name: Rahul Amaral, DO Status: Urgent Closure Device Percutaneous Entry Location: Femoral Closure Device: Mynx Recommendations: PCI without planned CABG PCI Indication: PCI for high risk Non-STEMI Lesion Segment Name: OM2 Culprit Artery: Yes Stenosis Prior to Rx (%): 100 Chronic Total Occlusion: No IVUS: No FFR: No Pre-Procedure CHACHA Flow: 0 Previously Treated Lesion: No Lesion Complexity: Non-High/Non-C Lesion Length (mm): 20 Thrombus Present: Yes Bifurcation Lesion: No Guidewire Across Lesion: Yes Guidewire: Stenosis Post-Procedure (%): 0 Post-Procedure CHACHA Flow: 3 Device(s) Deployed: Yes Intraprocedure Events Significant Dissection: No Perforation: No
[2017-06-02] MEDS ORDERED: CLOPIDOGREL BISULFATE 300 MG TAB PO ONE (17:06)
[2017-06-02] MEDS ORDERED: SODIUM CHLORIDE 0.9% 1000ML 1,000 ML IV SCH (17:15)
--- NOTE | 2017-06-02 17:26 | NUR ---
PT ARRIVED BACK FROM FLIGHT OPERATIONS MANAGER. RIGHT GROIN DRESSING C/D/I +PULSES. NO HEMATOMA NOTED. VSS. ASSESSMENT COMPLETED. FAMILY AT BEDSIDE. PT DECLINED TRAY AT THIS TIME. INSTRUCTED PATIENT TO REMAIN FLAT AND NOT TO USE RIGHT LEG. CALL SANTIZO IN REACH WILL CONT TO MONITOR.
[2017-06-02] MEDS ORDERED: NITROGLYCERIN 2% OINTMENT 30GM TUBE EXT SCH (18:00)
[2017-06-02] MEDS ORDERED: METOPROLOL TARTRATE 1 MG/ML VIAL IV. SCH (18:00)
[2017-06-02 18:51] LABS: CKMB 220.8 ng/ml (0.5-3.6)
--- NOTE | 2017-06-02 18:52 | NUR ---
Right groin noted to have a slight increase in shadowing on dressing. Will continue to monitor site closely. Teaching with patient about s/s of bleeding. Told to report any sensation of warmth or wetness in right groin. Medicated for heartburn. MD notified of heartburn by previous shift. Will continue to monitor patient closely.
[2017-06-02] MEDS ORDERED: ALUMINUM/MAGNESIUM/SIMETH (MAALOX MAX) 30 ML UDC PO PRN (19:00)
[2017-06-02] MEDS ORDERED: ALUMINUM/MAGNESIUM SUSP 30 ML UDC ONE (19:13)
[2017-06-02] MEDS ORDERED: OXYC-594 PO (19:45)
--- NOTE | 2017-06-02 19:51 | NUR ---
Spoke with Dr. Nogueira about patient's request for pain medication. Home dose held on admission orders. New orders received.
[2017-06-02] MEDS: OXYCODONE/ACETAMINOPHEN 10/325MG TAB PO PRN (20:09)
[2017-06-02] MEDS: METOPROLOL TARTRATE 25 MG TAB PO SCH (20:09)
[2017-06-03] MEDS ORDERED: SODIUM CHLORIDE 0.9% 1000ML 1,000 ML IV SCH
--- NOTE | 2017-06-03 00:01 | NUR ---
a: Reassessment completed at this time. No further bleeding to right groin dressing. Denies pain. IVF infusing per order. Denies chest pain or shortness of breath. Voiding in urinal. Medicated for back pain as needed. Comfortable with rating at this time. Refer to EMR for full assessment details. Call rand and bedside table are within reach. Will continue to monitor patient closely.
--- NOTE | 2017-06-03 04:00 | NUR ---
a: Reassessment completed at this time. library monitor intact, displaying SR. Patient denies chest pain or shortness of breath. Right groin dressing intact. No further bleeding around outlined area. Voiding independently in urinal. No needs voiced at this time. Refer to EMR for full assessment details. Call rand and bedside table are within reach. Will continue to monitor patient closely.
[2017-06-03 04:09] VITALS: BP 123/73; PULSE 78; TEMP 36.8; O2SAT 93
[2017-06-03 06:14] LABS: HEMATOCRIT 36.9 % (42-52); HEMOGLOBIN 12.6 g/dL (14.0-18.0); MEAN CELL VOLUME 89.1 fL (80-100); MEAN CORPUSCULAR HEMOGLOBIN 30.4 pg (25-34); MEAN CORPUSCULAR HGB CONC 34.1 g/dl (32-36); MEAN PLATELET VOLUME 9.3 fL (7.4-10.4); PLATELET COUNT 246 K/uL (130-400); RED CELL DISTRIBUTION WIDTH CV 14.4 % (11.5-14.5); RED CELL DISTRIBUTION WIDTH SD 47.3 fL (36.4-46.3); WHITE BLOOD COUNT 9.89 K/uL (4.8-10.8)
[2017-06-03 06:48] LABS: CREATININE 0.69 mg/dl (0.60-1.40)
[2017-06-03 06:53] LABS: CALCIUM 8.5 mg/dl (8.5-10.1)
[2017-06-03 07:07] LABS: PTT PATIENT 26.7 SECONDS (21.0-31.0)
[2017-06-03 07:35] VITALS: BP 112/76; PULSE 77; TEMP 36.7; O2SAT 92
--- NOTE | 2017-06-03 08:00 | NUR ---
A:id/pt alert in bed. assisted oob to chair. no change in drainage noted to dressing. currently no complaints. assessment completed. pt will return home with @d/c . call rand in reach will monitor.
[2017-06-03] MEDS: METOPROLOL TARTRATE 25 MG TAB PO SCH (08:05)
[2017-06-03] MEDS ORDERED: ASPIRIN 81 MG ECTAB PO SCH (09:00)
[2017-06-03] MEDS ORDERED: ATORVASTATIN 40 MG TAB PO SCH (09:00)
[2017-06-03] MEDS ORDERED: CLOPIDOGREL BISULFATE 75 MG TAB PO SCH (09:00)
[2017-06-03] MEDS ORDERED: METOPROLOL TARTRATE 25 MG TAB PO STA (10:18)
[2017-06-03] MEDS ORDERED: LOSARTAN POTASSIUM 25 MG TAB PO ONE (10:19)
[2017-06-03 10:53] VITALS: BP 115/72; PULSE 50; TEMP 36.4; O2SAT 97
--- NOTE | 2017-06-03 11:08 | NUR ---
pt ambulating the halls without complaints. awaiting discharge.
--- NOTE | 2017-06-03 11:18 | Cardiology Follow-Up ---
Subjective General Date of Service: Jun 03, 2017. Chief Complaint: follow up chest pain, myocardia infarction Pt evaluation today including: conversation w/ patient, physical exam History of Present Illness The patient is a 56 year old male seen in cardiology follow-up with initial consultation having been performed yesterday by Dr. Amaral. Patient states he feels well post cardiac catheter station. He denies any additional anginal symptoms. He denies any discomfort in his right femoral artery procedure site. Telemetry overnight revealed sinus rhythm with occasional PVCs with rates in the 70-92 bpm range. On 06/03/17 at 3:53 AM there was a 4 beat run of nonsustained ventricular tachycardia with rate of 114 bpm. Allergies Coded Allergies: Morphine (Unverified Allergy, Unknown, NAUSEA, 06/02/17) Social History Smoking Status: Current Every Day Smoker Hx Tobacco Use In Past Year?: Yes Hx Alcohol Use - Type And Amou: No Hx Substance Use - Type And Am: No Physical Exam Vital Signs Last Vital Signs Documentation Date Time Temp Pulse Resp B/P (MAP) Pulse Ox O2 Delivery O2 Flow Rate FiO2 06/03/17 08:00 Room Air 06/03/17 07:35 36.7 77 18 112/76 (88) 92 Physical Exam Constitutional: Level of Distress: NAD Head: normocephalic ENMT: TMs normal, pharynx normal Lungs: Auscultation: no wheezing, no rales/crackles, no rhonchi Cardiovascular: Heart Auscultation: RRR, normal S1, no murmurs, no rubs, no gallops Abdomen: Inspection & Palpation: soft, non-distended, no tenderness, guarding & rebound Extremities: no cyanosis, no edema Neurologic: Gait & Station: pertinent finding (no focal deficits) Assessment and Plan Assessment and Plan EKG performed the evening of 06/02/70 revealed resolution of the previously noted inferior and lateral ST changes, with residual T-wave inversion noted in lead aVL. Impression: 1. NSTEMI, s/p cardiac catheterization, PCI of proximal OM2 with one drug- eluting stent (2.5 x 26 Gil), 06/02/17 Anterolateral, anterior hypokinesis, mild LV systolic dysfunction, EF 45%. 2. Hypertension 3. Dyslipidemia 4. Cigarette smoking 5. 4 beat run of NSVT on telemetry Plan: Continue aspirin and clopidogrel. Discontinue IV fluids Increase metoprolol tartrate from 2.5 mg twice a day to 25 mg twice a day. Start losartan 25 mg by mouth daily. I favor losartan over lisinopril given the patient's underlying cigarette smoking in order to avoid cough related side effects Atorvastatin 80 mg daily. Increase activity as tolerated. Patient is eager to be discharged later today. Reassess later this afternoon if he is feeling well, plan for discharge with outpatient cardiology follow-up with Dr. Amaral, Dr. Sinclair, or PA in 2-3 weeks. Recommend repeat resting transthoracic echocardiogram 1-3 month interval to reassess his motion LVEF given anterolateral, anterior hypokinesis with mild LV systolic dysfunction. No clinical evidence of heart failure. Hemoglobin electrolytes CBC findings were stable this morning. Repeat troponin and EKG. Laboratory Results Last 24 Hours Test 06/02/17 11:39 06/02/17 13:56 06/02/17 16:18 06/02/17 17:30 Total Creatine Kinase 134 U/L 1526 U/L Creatine Kinase MB 14.1 ng/ml 220.8 ng/ml Creatine Kinase MB Ratio 10.5 14.5 Troponin I 1.040 ng/ml 49.400 ng/ml Prothrombin Time 10.2 SECONDS Prothromb Time International Ratio 1.0 Activated Partial Thromboplast Time 26.0 SECONDS Partial Thromboplastin Ratio 1.0 Kaolin Activated Coagulation Time 268 SECONDS Test 06/03/17 05:40 White Blood Count 9.89 K/uL Red Blood Count 4.14 M/uL Hemoglobin 12.6 g/dL Hematocrit 36.9 % Mean Corpuscular Volume 89.1 fL Mean Corpuscular Hemoglobin 30.4 pg Mean Corpuscular Hemoglobin Concent 34.1 g/dl RDW Standard Deviation 47.3 fL RDW Coefficient of Variation 14.4 % Platelet Count 246 K/uL Mean Platelet Volume 9.3 fL Prothrombin Time 10.2 SECONDS Prothromb Time International Ratio 1.0 Activated Partial Thromboplast Time 26.7 SECONDS Partial Thromboplastin Ratio 1.0 Sodium Level 138 mmol/L Potassium Level 4.0 mmol/L Chloride Level 107 mmol/L Carbon Dioxide Level 26 mmol/L Anion Gap 5.0 mmol/L Blood Urea Nitrogen 13 mg/dl Creatinine 0.69 mg/dl Est Creatinine Clear Calc Drug Dose 115.6 ml/min Estimated GFR () 123.0 Estimated GFR (Non- 106.1 BUN/Creatinine Ratio 19.5 Random Glucose 89 mg/dl Calcium Level 8.5 mg/dl Triglycerides Level 134 mg/dl Cholesterol Level 182 mg/dl HDL Cholesterol 40 mg/dl LDL Cholesterol, Calculated 115 mg/dl VLDL Cholesterol, Calculated 27 mg/dl Cholesterol/HDL Ratio 4.6
--- NOTE | 2017-06-03 12:15 | NUR ---
pt reassessed. denies needs. call rand in reach will cont to monitor.
--- NOTE | 2017-06-03 12:57 | Cardiology Progress Note ---
Cardiology Progress Note Date of Service Jun 03, 2017. Cardiology Progress Note This morning 06/03/17 at 11:51 AM revealed sinus rhythm with stable repolarization pattern, no new ischemic changes. The patient's troponin has trended down from peak of 49.4 to 30.6 on repeat this morning. Continue to advance activity. Will reassess later today.
[2017-06-03] MEDS: OXYCODONE/ACETAMINOPHEN 10/325MG TAB PO PRN (14:39)
[2017-06-03 15:30] VITALS: BP 107/65; PULSE 66; TEMP 36.7; O2SAT 95
[2017-06-03] MEDS ORDERED: LPT40 PO ×2 (16:18→16:20)
[2017-06-03] MEDS ORDERED: CZR25 PO ×2 (16:18→16:20)
[2017-06-03] MEDS ORDERED: LPR25 PO ×2 (16:18→16:20)
[2017-06-03] MEDS ORDERED: PLV75 PO ×2 (16:18→16:20)
[2017-06-03] MEDS ORDERED: ASPI-320 PO ×2 (16:18→16:20)
--- NOTE | 2017-06-03 16:24 | Discharge Instructions ---
Discharge Instructions Admission Admission Date: Jun 02, 2017 at 12:34 Admission Diagnosis: Chest Pain. Discharge Care Plan - Problem: NSTEMI S/P STENT Care Plan - Goal(s): Decrease discomfort, Improve function Care Plan - Instructions: Activity Recommendations: lifting limitation (NOT TO LIFT MORE THAN 5 POUNDS UNTIL SEEN BY CARDIOLOGY), limitations ( TOLERATED. NO STRENOUS ACTIVITY UNTIL SEEN BY CARDIOLOGY) Recommended Home Diet: AHA Phase I (2gmNa/LoCho) Provider Instructions: FOLLOWUP WITH FAMILY DOCTOR IN 4-5 DAYS FOLLOWUP WITH CARDIOLOGY /JACKY IN 2-3 WEEKS. REPEAT ECHO IN 1-3 MONTHS PER CARDIOLOGY. CARDIAC REHAB PER FAMILY DOCTOR OR CARDIOLOGY. TO TAKE ALL MEDICATIONS PRESCRIBED REGULARLY. NOT TO MISS TAKING ANY MEDICATIONS( ESPECIALLY ASPIRIN AND PLAVIX IT CAN LEAD TO CLOSURE OF STENT). Activation of Emergency Medical System: Call 911, immediately, if you experience any of the following: Warning Signs and Symptoms of a Heart Attack: * Chest pain that is not relieved by medication * Shortness of breath Otherwise, call your doctor immediately if you have: * Lightheadedness, dizziness, or fainting * Feeling of irregular heartbeat or fast pulse Home Care: * Take your medications exactly as directed. Don't skip doses. * Remember that recovery after a heart attack takes time. Plan to rest for at lease 4-8 weeks while you recover. Then return to normal activity when your doctor says it's okay. * Ask your doctor about joining a heart rehabilitation program. * Tell your doctor if you are feeling depressed. Feelings of sadness are common after a heart attack, but it is important that you speak to someone if you are feeling overwhelmed by these feelings. * If you are having chest pain, call 911 for an ambulance. Do NOT drive yourself to the hospital. * Ask your family members to learn CPR. * Learn to take your own blood pressure and pulse. Keep a record of your results. Ask your doctor when you should seek emergency medical attention. He or she will tell you which blood pressure reading is dangerous. Lifestyle Changes: * Maintain a healthy weight. Get help to lose any extra pounds. * Cut back on salt. 1. Limit canned, dried, packaged, and fast foods. 2. Don't add salt to your food. 3. Season foods with herbs instead of salt when you cook. * Break the smoking habit. Enroll in a stop-smoking program to improve your chances of success. * Limit fatty foods. * Check your lipid levels regularly. (Your doctor can show you how to do this. ) * Build up your activity according to your doctor's recommendation. * Ask your doctor when it's okay to resume sexual activity. * Tell your doctor about any erectile dysfunction (ED) medication you are taking. Some ED medications are not safe if you take certain heart medications. * Try to manage stress. Follow Up: It is important for you to keep your follow up appointments with your medical provider. VTE Core Measures Inpt VTE Proph given/why not?: Unfractionated heparin SQ AMI Core Measures Reason no ASA as I/P: Treatment provided - N/A Reason no ASA at D/C: Treatment provided - N/A Reason no statin as I/P: Treatment provided - N/A Reason no statin at D/C: Treatment provided - N/A Laboratory Results Test Results: Lipid Panel Test 06/03/17 05:40 Range/Units Triglycerides Level 134 0-150 mg/dl Cholesterol Level 182 0-200 mg/dl HDL Cholesterol 40 mg/dl Cholesterol/HDL Ratio 4.6 LDL Cholesterol, Calculated 115 mg/dl [facility] Recommendations: Call your doctor if: * Temperature above 101 degrees * Pain not relieved by pain medicine ordered * There is increased drainage or redness from any incision * You have any unanswered questions or concerns. Your Doctors Instructions noted above were prepared by provider Slim Parish.
[2017-06-03] MEDS ORDERED: ATOR-26 PO (16:27)
[2017-06-03 16:44] VITALS: BP 107/65; PULSE 66; TEMP 36.7; O2SAT 95
--- NOTE | 2017-06-03 16:59 | NUR ---
A: Patient discharged to home at this time with family member. Patient verbalized understanding of discharge instructions, medications, prescriptions, activity limitations, diet changes, smoking cessation, and follow up appointments.
--- NOTE | 2017-06-03 17:12 | Progress Note ---
Internal Med Progress Note Date of Service: Jun 03, 2017. Provider Documentation: SUBJECTIVE: denies any chest pain denies sob afebrile ambulating fine wants to go home OBJECTIVE: Vital Signs-as noted below Exam: General-alert and oriented. Not in distress ENT-Normal hearing Neck-no neck masses supple Lungs-cta b/l no wheezing no crackles Heart-S1 and S2 heard regular rate and rthym, no murmurs Abdomen-Soft bowel sounds present non tender no distension Extremities-no edema no erythema Neuro-alert and awake moves extremities Lab data as noted below. ASSESSMENT & PLAN: This is a 56yo M with a PMH of HTN, HLD, tobacco use disorder and chronic lower back pain who presents with worsening chest pain that started yesterday morning. NSTEMI: -EKG- Subtle ischemic change in inferior leads (III) Possible ST elevation in aVL (<1mm) but no other leads Most recent EKG was NSR Troponin peaked to 49 and trended down to 30 s/p cardiac cath and PCI of proximal OM2 with one drug-eluting stent stable now discharged on aspirin, plavix, Lopressor, losartan and statin f/u with pcp and cardiology HTN: BP meds as above f/u with pcp and cardiology HLD: Has not been taking statin LDL 115 HDl 40 discharged on Lipitor Chronic back pain: H/o bilateral sciatica d/c on home meds Tobacco abuse advised to quit smoking discharged home Vital Signs: Date Time Temp Pulse Resp B/P (MAP) Pulse Ox O2 Delivery O2 Flow Rate FiO2 06/03/17 16:44 36.7 66 18 95 Room Air 06/03/17 16:00 Room Air 06/03/17 15:30 36.7 66 18 107/65 (79) 95 Room Air 06/03/17 12:00 Room Air 06/03/17 10:53 36.4 50 18 115/72 (86) 97 Room Air 06/03/17 08:00 Room Air 06/03/17 07:35 36.7 77 18 112/76 (88) 92 Room Air 06/03/17 04:09 36.8 78 18 123/73 (90) 93 Room Air 06/03/17 04:00 Room Air 06/02/17 23:59 Room Air 06/02/17 22:52 36.9 72 18 128/75 (92) 94 Room Air 06/02/17 21:52 36.8 72 18 130/81 (97) 94 Room Air 06/02/17 20:52 37.0 74 18 125/73 (90) 94 Room Air 06/02/17 20:00 Room Air 06/02/17 19:52 36.7 74 18 147/79 (101) 96 Room Air 06/02/17 18:52 64 155/80 (105) 96 Room Air 06/02/17 18:22 36.8 66 16 151/83 (105) 97 Room Air 06/02/17 17:52 36.8 71 16 151/88 (109) 97 Room Air 06/02/17 17:37 36.8 65 16 145/87 (106) 94 Room Air 06/02/17 17:33 Room Air 06/02/17 17:29 36.8 81 20 150/91 (110) 94 Room Air Lab Results: Results Past 24 Hours Test 06/02/17 17:30 06/03/17 05:40 06/03/17 10:46 Range/Units Total Creatine Kinase 1526 39-308 U/L Creatine Kinase MB 220.8 0.5-3.6 ng/ml Creatine Kinase MB Ratio 14.5 0-3.0 Troponin I 49.400 30.600 0-0.045 ng/ml White Blood Count 9.89 4.8-10.8 K/uL Red Blood Count 4.14 4.7-6.1 M/uL Hemoglobin 12.6 14.0-18.0 g/dL Hematocrit 36.9 42-52 % Mean Corpuscular Volume 89.1 80-100 fL Mean Corpuscular Hemoglobin 30.4 25-34 pg Mean Corpuscular Hemoglobin Concent 34.1 32-36 g/dl RDW Standard Deviation 47.3 36.4-46.3 fL RDW Coefficient of Variation 14.4 11.5-14.5 % Platelet Count 246 130-400 K/uL Mean Platelet Volume 9.3 7.4-10.4 fL Prothrombin Time 10.2 9.0-12.0 SECONDS Prothromb Time International Ratio 1.0 0.9-1.1 Activated Partial Thromboplast Time 26.7 21.0-31.0 SECONDS Partial Thromboplastin Ratio 1.0 Sodium Level 138 136-145 mmol/L Potassium Level 4.0 3.5-5.1 mmol/L Chloride Level 107 98-107 mmol/L Carbon Dioxide Level 26 21-32 mmol/L Anion Gap 5.0 3-11 mmol/L Blood Urea Nitrogen 13 7-18 mg/dl Creatinine 0.69 0.60-1.40 mg/dl Est Creatinine Clear Calc Drug Dose 115.6 ml/min Estimated GFR () 123.0 Estimated GFR (Non- 106.1 BUN/Creatinine Ratio 19.5 10-20 Random Glucose 89 70-99 mg/dl Calcium Level 8.5 8.5-10.1 mg/dl Triglycerides Level 134 0-150 mg/dl Cholesterol Level 182 0-200 mg/dl HDL Cholesterol 40 mg/dl LDL Cholesterol, Calculated 115 mg/dl VLDL Cholesterol, Calculated 27 mg/dl Cholesterol/HDL Ratio 4.6
--- NOTE | 2017-06-03 19:35 | Discharge Summary ---
Discharge Summary Date of Service Jun 03, 2017. Discharge Summary Admission Date: Jun 02, 2017 at 12:34 Discharge Date: Jun 03, 2017 Discharge Disposition: Home Principal Diagnosis: NSTEMI Secondary Diagnoses/Problems: (1) Chronic lower back pain Status: Chronic (2) HLD (hyperlipidemia) Status: Chronic (3) HTN (hypertension) Status: Chronic (4) Tobacco use disorder Status: Chronic Procedures: CTA CHEST: 1. No pulmonary emboli identified. 2. Moderate emphysema. 3. 1 cm subpleural groundglass opacity within the right lower lobe. This likely reflects minimal airspace disease or atelectasis. A pleural lesion is considered less likely however a follow-up chest CT in 3 months to ensure resolution is recommended. 4. Small hiatal hernia. 5. Mild esophageal wall thickening which may be due to underdistention or reflect esophagitis. ECHO: There is a large sized apical, anterior, and lateral wall motion abnormality with hypokinesis of the segments. * Left ventricular systolic function is mildly reduced. * The qualitative left ventricular ejection fraction =45% * There is no significant valvular heart disease. S/P CARDIAC CATH Consultations: CARDIOLOGY Medication Reconciliation New Medications: Atorvastatin (Lipitor) 80 Mg Tab 80 MG PO DAILY, #30 TAB 3 Refills Aspirin (Aspirin EC Low Dose) 81 Mg Ectab 81 MG PO QAM, #30 TAB 3 Refills Clopidogrel Bisulfate (Clopidogrel) 75 Mg Tab 75 MG PO QAM, #30 TAB 3 Refills Losartan Potassium (Losartan Potassium) 25 Mg Tab 25 MG PO QAM, #30 TAB 3 Refills Metoprolol Tartrate (Lopressor) 25 Mg Tab 25 MG PO BID, #60 TAB 3 Refills Continued Medications: Oxycodone/Acetaminophen 10MG/325MG (Oxycodone/Acetaminophen 10MG/325MG) 1 Tab Tab 1 TAB PO Q6H PRN for Pain, TAB Admission Information HPI (per Admitting provider): This is a 56yo M with a PMH of HTN, HLD, tobacco use disorder and chronic lower back pain who presents with worsening chest pain that started this morning. Patient was going up and down his stairs at home when he started to experience sudden onset chest pain. Describes as sharp, 6/10 pain across precordium radiated to his back and lasted for 5 minutes before subsiding. Patient was driving to work when he experienced another, more severe episode of 9/10 chest pain with associated radiation to back and tingling in his arms. Denies diaphoresis, nausea, vomiting or SOB. Drove himself to ED for further evaluation. States that he was told 10 years ago [facility] that he no longer needed BP meds, so he stopped taking them. Has been diagnosed with HLD and prescribed atorvastatin but does not take. Smokes 1.5 ppd. Denies any personal or family history of CAD or h/o MIs. Family history of CVA. Denies fever, chills, lightheadedness, headache, diaphoresis, palpitations, SOB, abd pain, nausea, vomiting or LE swelling. ED course included a full dose aspirin, sublingual nitro and 150mg of fentanyl total with some pain relief (went from 02/12 to 09/12). Initial EKG was read with possible ischemia in inferior leads and ST depression in posterior leads but findings improved in repeat EKGs. Initial troponin was negative but repeat POC troponin was elevated to 0.1. Physical Exam (per Admitting): General Appearance: + mild distress, + pertinent finding (Pale appearing ) Head: normocephalic, atraumatic Eyes: normal inspection, PERRL, sclerae normal ENT: normal ENT inspection, hearing grossly normal, pharynx normal (moist mucous membranes ) Neck: supple, thyroid normal, trachea midline Respiratory/Chest: chest non-tender, lungs clear, normal breath sounds, no respiratory distress, no accessory muscle use Cardiovascular: regular rate, rhythm, no murmur, normal peripheral pulses Abdomen/GI: non tender, soft, no organomegaly Back: normal inspection Extremities/Musculoskelatal: normal inspection, no calf tenderness, no pedal edema Neurologic/Psych: no motor/sensory deficits, alert, normal mood/affect, oriented x 3 Skin: normal color, warm/dry Hospital Course This is a 56yo M with a PMH of HTN, HLD, tobacco use disorder and chronic lower back pain who presents with worsening chest pain that started yesterday morning. NSTEMI: -EKG- Subtle ischemic change in inferior leads (III) Possible ST elevation in aVL (<1mm) but no other leads Most recent EKG was NSR Troponin peaked to 49 and trended down to 30 s/p cardiac cath and PCI of proximal OM2 with one drug-eluting stent stable now discharged on aspirin, plavix, Lopressor, losartan and statin f/u with pcp and cardiology HTN: BP meds as above f/u with pcp and cardiology HLD: Has not been taking statin LDL 115 HDl 40 discharged on Lipitor Chronic back pain: H/o bilateral sciatica d/c on home meds Tobacco abuse advised to quit smoking discharged home Total time spent on discharge = 35MINUTES This includes examination of the patient, discharge planning, medication reconciliation, and communication with other providers. Discharge Instructions Discharge Instructions Admission Admission Date: Jun 02, 2017 at 12:34 Admission Diagnosis: Chest Pain. Discharge Care Plan - Problem: NSTEMI S/P STENT Care Plan - Goal(s): Decrease discomfort, Improve function Care Plan - Instructions: Activity Recommendations: lifting limitation (NOT TO LIFT MORE THAN 5 POUNDS UNTIL SEEN BY CARDIOLOGY), limitations ( TOLERATED. NO STRENOUS ACTIVITY UNTIL SEEN BY CARDIOLOGY) Recommended Home Diet: AHA Phase I (2gmNa/LoCho) Provider Instructions: FOLLOWUP WITH FAMILY DOCTOR IN 4-5 DAYS FOLLOWUP WITH CARDIOLOGY /JACKY IN 2-3 WEEKS. REPEAT ECHO IN 1-3 MONTHS PER CARDIOLOGY. CARDIAC REHAB PER FAMILY DOCTOR OR CARDIOLOGY. TO TAKE ALL MEDICATIONS PRESCRIBED REGULARLY. NOT TO MISS TAKING ANY MEDICATIONS( ESPECIALLY ASPIRIN AND PLAVIX IT CAN LEAD TO CLOSURE OF STENT). Activation of Emergency Medical System: Call 911, immediately, if you experience any of the following: Warning Signs and Symptoms of a Heart Attack: * Chest pain that is not relieved by medication * Shortness of breath Otherwise, call your doctor immediately if you have: * Lightheadedness, dizziness, or fainting * Feeling of irregular heartbeat or fast pulse Home Care: * Take your medications exactly as directed. Don't skip doses. * Remember that recovery after a heart attack takes time. Plan to rest for at lease 4-8 weeks while you recover. Then return to normal activity when your doctor says it's okay. * Ask your doctor about joining a heart rehabilitation program. * Tell your doctor if you are feeling depressed. Feelings of sadness are common after a heart attack, but it is important that you speak to someone if you are feeling overwhelmed by these feelings. * If you are having chest pain, call 911 for an ambulance. Do NOT drive yourself to the hospital. * Ask your family members to learn CPR. * Learn to take your own blood pressure and pulse. Keep a record of your results. Ask your doctor when you should seek emergency medical attention. He or she will tell you which blood pressure reading is dangerous. Lifestyle Changes: * Maintain a healthy weight. Get help to lose any extra pounds. * Cut back on salt. 1. Limit canned, dried, packaged, and fast foods. 2. Don't add salt to your food. 3. Season foods with herbs instead of salt when you cook. * Break the smoking habit. Enroll in a stop-smoking program to improve your chances of success. * Limit fatty foods. * Check your lipid levels regularly. (Your doctor can show you how to do this. ) * Build up your activity according to your doctor's recommendation. * Ask your doctor when it's okay to resume sexual activity. * Tell your doctor about any erectile dysfunction (ED) medication you are taking. Some ED medications are not safe if you take certain heart medications. * Try to manage stress. Follow Up: It is important for you to keep your follow up appointments with your medical provider. VTE Core Measures Inpt VTE Proph given/why not?: Unfractionated heparin SQ AMI Core Measures Reason no ASA as I/P: Treatment provided - N/A Reason no ASA at D/C: Treatment provided - N/A Reason no statin as I/P: Treatment provided - N/A Reason no statin at D/C: Treatment provided - N/A Laboratory Results Test Results: Lipid Panel Test 06/03/17 05:40 Range/Units Triglycerides Level 134 0-150 mg/dl Cholesterol Level 182 0-200 mg/dl HDL Cholesterol 40 mg/dl Cholesterol/HDL Ratio 4.6 LDL Cholesterol, Calculated 115 mg/dl [facility] Recommendations: Call your doctor if: * Temperature above 101 degrees * Pain not relieved by pain medicine ordered * There is increased drainage or redness from any incision * You have any unanswered questions or concerns. Your Doctors Instructions noted above were prepared by provider Slim Parish.
[2017-06-03] MEDS ORDERED: METOPROLOL TARTRATE 25 MG TAB PO SCH (21:00)
[2017-06-04] MEDS ORDERED: LOSARTAN POTASSIUM 25 MG TAB PO SCH (09:00)
== END 2017-06-03 17:18 | disposition home or self-care (01) ==
LOC: C.EDB 07:33 → ENRESERV 11:26 → C.2T 12:34
PROVIDERS: ADMIT Internal Medicine; ATTEND Internal Medicine
DX: I21.4 Non-ST elevation (NSTEMI) myocardial infarction (principal); I10 Essential (primary) hypertension; E78.5 Hyperlipidemia, unspecified; F17.200 Nicotine dependence, unspecified, uncomplicated; M54.9 Dorsalgia, unspecified; I25.10 Atherosclerotic heart disease of native coronary artery without angina pectoris

== ENCOUNTER 2017-06-23 10:26 | Emergency (ER) | payer OTHER ==
[~2017-06-23] VITALS: Ht 172.7 cm; Wt 72.6 kg
[~2017-06-23 10:26] MED LIST changes: +ASPEC81 PO; +ATOR-26 PO; +CZR25 PO; -HYDROCODONE; +LPR25 PO; +OXYC-88 PO; +PLV75 PO
[2017-06-23 10:37] VITALS: TEMP 36.7; Ht 172.7 cm; Wt 72.6 kg
--- NOTE | 2017-06-23 10:51 | EMERGENCY ROOM VISIT NOTE ---
History Report prepared by Ze: Ermias Blood Under the Supervision of: Dr. Home Bruce M.D. First contact with patient: 10:44 Chief Complaint: CHEST PAIN Stated Complaint: CHEST PAIN- COMPLICATIONS FROM PROCEDURE Nursing Triage Summary: Pt had an SD 3 weeks ago with one stent placed, has a minx dissolvable device in right groin that started oozing blood last evening and pt feels a knot there. Pt also c/o CP intermittent since the cath, worse today on left side of chest 08/12 , no radiation. Pt took ASA and metroprolol today. History of Present Illness The patient is a 56 year old male who presents to the Emergency Room with complaints of chest pain that began 2 weeks ago. Patient with mild sharp left lateral rib pain. Started after heart cath 2 weeks ago. Denies shob, syncope, nausea, vomiting, palpitations. States this is not like his NSTEMI pain from 2 weeks ago. Pain doesn't bother him. Admits it seems worse when moving things at work but not with exertion. Has been taking all of his medications. Also notes discomfort right groin which is improving post bleeding after heart catheterization. No swelling, bleeding, redness, fevers, drainage, nor distal symptoms. Source of History: patient Onset: 2 weeks ago Position: chest Timing: constant Associated Symptoms: + chest pain Note: Patient complains of bleeding form his groin. Review of Systems See HPI for pertinent positives & negatives. A total of 10 systems reviewed and were otherwise negative. Past Medical & Surgical Medical Problems: (1) Chronic lower back pain (2) HLD (hyperlipidemia) (3) HTN (hypertension) (4) Tobacco use disorder Family History Stroke MOTHER Social History Smoking Status: Former Smoker Alcohol Use: none Drug Use: none Marital Status: Occupation Status: employed Current/Historical Medications Scheduled Aspirin (Aspirin Ec), 81 MG PO DAILY Atorvastatin (Lipitor), 80 MG PO DAILY Clopidogrel (Plavix), 75 MG PO DAILY Losartan Potassium (Cozaar), 25 MG PO DAILY Metoprolol Tartrate (Lopressor) (Lopressor), 25 MG PO BID Scheduled PRN Oxycodone/Acetaminophen 10MG/325MG (Oxycodone/Acetaminophen 10MG/325MG), 1 TAB PO Q6H PRN for Pain Allergies Coded Allergies: Morphine (Unverified Allergy, Unknown, NAUSEA, 06/02/17) Physical Exam Vital Signs Date Time Temp Pulse Resp B/P (MAP) Pulse Ox O2 Delivery O2 Flow Rate FiO2 06/23/17 12:40 61 22 125/77 99 06/23/17 12:05 65 24 116/72 99 Room Air 06/23/17 10:54 65 06/23/17 10:37 36.7 61 18 118/72 100 Room Air Physical Exam GENERAL: Patient is well appearing and in no acute distress. HEENT: No acute trauma, normocephalic atraumatic, mucous membranes moist, no nasal congestion, no scleral icterus. NECK: No stridor, no adenopathy, no meningismus, trachea is midline. LUNGS: No dyspnea. Distant lung sounds. Clear to auscultation and equal bilaterally. No wheeze, no rhonchi. HEART: Regular rate and rhythm. No murmurs, rubs, gallops appreciated. ABDOMEN: Soft, nontender, bowel sounds positive, no masses appreciated, no peritonitis. BACK: No midline tenderness, no CVA tenderness EXTREMITIES: Normal motion all extremities, no cyanosis, no edema. NEUROLOGIC: Alert and oriented, no acute motor or sensory deficits, no focal weakness, cranial nerves grossly intact. UROGENITAL: Small hematoma, mass in right groin; mild tenderness to palpation SKIN: No rash, no jaundice, no diaphoresis. Medical Decision & Procedures ER Provider Diagnostic Interpretation: Radiology results and stated below per my review and radiologist interpretation: CHEST ONE VIEW PORTABLE CLINICAL HISTORY: Atypical chest pain COMPARISON STUDY: 06/02/2017 FINDINGS: The cardiac and mediastinal contours are normal. There is no evidence of focal pulmonary consolidation. There is no evidence of failure. No pleural effusions are visualized.[ IMPRESSION: No active disease in the chest. Electronically signed by: Moody Hernandes M.D. 06/23/2017 11:11 AM Dictated Date/Time: 06/23/2017 11:11 AM RIGHT GROIN DUPLEX ULTRASOUND STUDY CLINICAL HISTORY: right groin swelling/pain s/p catheterization. R/o Pseudoaneurysm vs hematoma COMPARISON STUDY: None. FINDINGS: The visualized right femoral arteries are patent and demonstrate normal velocities. No pseudoaneurysm identified. At the right groin incision site there is a 1.1 x 1.0 x 0.7 cm complex subcutaneous fluid collection. This favors a small hematoma. IMPRESSION: 1. No pseudoaneurysm identified. 2. A 1.1 x 1.0 x 0.7 cm complex subcutaneous fluid collection with favors a small hematoma. Electronically signed by: Luis Rome M.D. 06/23/2017 12:06 PM Dictated Date/Time: 06/23/2017 12:04 PM Laboratory Results 06/23/17 10:58 Red Blood Count 4.51, Mean Corpuscular Volume 89.4, Mean Corpuscular Hemoglobin 30.4, Mean Corpuscular Hemoglobin Concent 34.0, Mean Platelet Volume 9.6, Neutrophils (%) (Auto) 60.7, Lymphocytes (%) (Auto) 30.5, Monocytes (%) (Auto) 7.8, Eosinophils (%) (Auto) 0.6, Basophils (%) (Auto) 0.2, Neutrophils # (Auto) 5.24, Lymphocytes # (Auto) 2.63, Monocytes # (Auto) 0.67, Eosinophils # (Auto) 0.05, Basophils # (Auto) 0.02 06/23/17 10:58 Test 06/23/17 10:58 White Blood Count 8.63 K/uL (4.8-10.8) Red Blood Count 4.51 M/uL (4.7-6.1) Hemoglobin 13.7 g/dL (14.0-18.0) Hematocrit 40.3 % (42-52) Mean Corpuscular Volume 89.4 fL (80-100) Mean Corpuscular Hemoglobin 30.4 pg (25-34) Mean Corpuscular Hemoglobin Concent 34.0 g/dl (32-36) Platelet Count 244 K/uL (130-400) Mean Platelet Volume 9.6 fL (7.4-10.4) Neutrophils (%) (Auto) 60.7 % Lymphocytes (%) (Auto) 30.5 % Monocytes (%) (Auto) 7.8 % Eosinophils (%) (Auto) 0.6 % Basophils (%) (Auto) 0.2 % Neutrophils # (Auto) 5.24 K/uL (1.4-6.5) Lymphocytes # (Auto) 2.63 K/uL (1.2-3.4) Monocytes # (Auto) 0.67 K/uL (0.11-0.59) Eosinophils # (Auto) 0.05 K/uL (0-0.5) Basophils # (Auto) 0.02 K/uL (0-0.2) RDW Standard Deviation 45.6 fL (36.4-46.3) RDW Coefficient of Variation 13.8 % (11.5-14.5) Immature Granulocyte % (Auto) 0.2 % Immature Granulocyte # (Auto) 0.02 K/uL (0.00-0.02) Anion Gap 6.0 mmol/L (3-11) Est Creatinine Clear Calc Drug Dose 99.7 ml/min Estimated GFR () 115.7 Estimated GFR (Non- 99.9 BUN/Creatinine Ratio 19.8 (10-20) Calcium Level 9.3 mg/dl (8.5-10.1) Troponin I < 0.015 ng/ml (0-0.045) Laboratory results as reviewed by me. ED Course 1044: The patient was evaluated in room C11. A complete history and physical exam was performed. 1219: I checked on the patient and they feel well enough to go home. 1230: Reevaluated the patient. Discussed results and discharge instructions: He verbalized understanding and agreement. The patient is ready for discharge. Medical Decision Differential: Cardiac Ischemia (STEMI, NSTEMI, Unstable Angina, etc), Aortic Dissection, Arrhythmia, Pulmonary Embolism, Pneumonia, Pneumothorax, MSK, Infectious, Pericarditis/Myocarditis, Esophageal Rupture, Gastrointestinal, amongst other pathologies entertained. 56 yr old male with left mid chest discomfort for last 2 weeks post cardiac stenting after NSTEMI. Notes worse with movement and he may have injured it while at work. No other symptoms associated with this. Does have right groin hematoma from cath sight which does not have pseudoaneurysm by US. EKG OK. CXR clear. Trop negative. Symptoms and work-up are not consistent with ACS. Suspect MSK. Symptoms not consistent with PE nor dissection and I do not feel repeat CTA required at this time. He is feeling well and wishes to go home and follow up with [employer]. Given timeline I do not feel that timed Trop here in ED would be of any benefit given continued pain for the last weeks anyways. We discussed symptoms requiring RTED and stressed importance of cards follow up. Hematoma does not appear infected at this time. Stable at discharge. Medication Reconcilliation Current Medication List: was personally reviewed by me Blood Pressure Screening Patient's blood pressure: Normal blood pressure Blood pressure disposition: Did not require urgent referral Impression Primary Impression: Left sided chest pain Additional Impression: Groin hematoma Scribe Attestation The scribe's documentation has been prepared under my direction and personally reviewed by me in its entirety. I confirm that the note above accurately reflects all work, treatment, procedures, and medical decision making performed by me. Departure Information Dispostion Home / Self-Care Referrals Rahul Amaral DO (PCP) Patient Instructions My [facility] Additional Instructions Return or call 911 immediately if you develop worsening chest pain, difficulty breathing, passing out or other concerning symptoms. Return or follow up with your primary provider if signs of infection appear in your groin. 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
[2017-06-23] MEDS ORDERED: METO25TA56 PO (11:09)
[2017-06-23] MEDS ORDERED: ATOR80TA PO (11:09)
[2017-06-23] MEDS ORDERED: LOSA1TAB PO (11:09)
[2017-06-23] MEDS ORDERED: ASPI81TA28 PO (11:09)
[2017-06-23] MEDS ORDERED: CLOP1TAB15 PO (11:09)
[2017-06-23 11:11] LABS: BASO % 0.2 %; BASO ABS # 0.02 K/uL (0-0.2); EOS % 0.6 %; EOS ABS # 0.05 K/uL (0-0.5); HEMATOCRIT 40.3 % (42-52); HEMOGLOBIN 13.7 g/dL (14.0-18.0); IG# 0.02 K/uL (0.00-0.02); LYMPH % 30.5 %; LYMPH ABS # 2.63 K/uL (1.2-3.4); MEAN CELL VOLUME 89.4 fL (80-100); MEAN CORPUSCULAR HEMOGLOBIN 30.4 pg (25-34); MEAN PLATELET VOLUME 9.6 fL (7.4-10.4); MONO % 7.8 %; MONO ABS # 0.67 K/uL (0.11-0.59); NEUT % 60.7 %; NEUT ABS # 5.24 K/uL (1.4-6.5); PLATELET COUNT 244 K/uL (130-400); RED CELL DISTRIBUTION WIDTH CV 13.8 % (11.5-14.5); RED CELL DISTRIBUTION WIDTH SD 45.6 fL (36.4-46.3); WHITE BLOOD COUNT 8.63 K/uL (4.8-10.8)
--- NOTE | 2017-06-23 11:12 | DIAGNOSTIC IMAGING REPORT ---
CHEST ONE VIEW PORTABLE CLINICAL HISTORY: Atypical chest pain COMPARISON STUDY: 06/02/2017 FINDINGS: The cardiac and mediastinal contours are normal. There is no evidence of focal pulmonary consolidation. There is no evidence of failure. No pleural effusions are visualized.[ IMPRESSION: No active disease in the chest. Electronically signed by: Moody Hernandes M.D. 06/23/2017 11:11 AM Dictated Date/Time: 06/23/2017 11:11 AM
[2017-06-23 11:30] LABS: BLOOD UREA NITROGEN 16 mg/dl (7-18); CALCIUM 9.3 mg/dl (8.5-10.1); CARBON DIOXIDE 28 mmol/L (21-32); GLUCOSE 96 mg/dl (70-99); POTASSIUM 4.2 mmol/L (3.5-5.1); SODIUM 139 mmol/L (136-145)
--- NOTE | 2017-06-23 12:07 | DIAGNOSTIC IMAGING REPORT ---
RIGHT GROIN DUPLEX ULTRASOUND STUDY CLINICAL HISTORY: right groin swelling/pain s/p catheterization. R/o Pseudoaneurysm vs hematoma COMPARISON STUDY: None. FINDINGS: The visualized right femoral arteries are patent and demonstrate normal velocities. No pseudoaneurysm identified. At the right groin incision site there is a 1.1 x 1.0 x 0.7 cm complex subcutaneous fluid collection. This favors a small hematoma. IMPRESSION: 1. No pseudoaneurysm identified. 2. A 1.1 x 1.0 x 0.7 cm complex subcutaneous fluid collection with favors a small hematoma. Electronically signed by: Luis Rome M.D. 06/23/2017 12:06 PM Dictated Date/Time: 06/23/2017 12:04 PM
[2017-06-23 12:40] VITALS: BP 125/77; PULSE 61; O2SAT 99
== END 2017-06-23 12:40 | disposition home or self-care (01) ==
LOC: C.EDB 10:27 → C.EDC 12:40
DX: R07.9 Chest pain, unspecified (principal); S30.1XXA Contusion of abdominal wall, initial encounter; Y84.8 Other medical procedures as the cause of abnormal reaction of the patient, or of later complication, without mention of misadventure at the time of the procedure; I25.2 Old myocardial infarction; E78.5 Hyperlipidemia, unspecified; I10 Essential (primary) hypertension; Z87.891 Personal history of nicotine dependence; Z79.82 Long term (current) use of aspirin; Z79.02 Long term (current) use of antithrombotics/antiplatelets; Z79.899 Other long term (current) drug therapy; Z82.49 Family history of ischemic heart disease and other diseases of the circulatory system